=== PATIENT | female | born 1945 | race Caucasian/White ===

== ENCOUNTER 2022-07-01 11:38 | Inpatient (IN) | payer MEDICARE, SELFPAY ==
[2022-06-25 09:55] VITALS: BMI 34.3
[2022-07-01] VITALS (14 sets, daily range): BP systolic 118–193; BP diastolic 55–89; PULSE 26–73; RESP 10–18; TEMP 35.9–36.7; O2SAT 93–98; BMI 34.3
[2022-07-01] MEDS: LACTATED RINGERS 1,000 ML 84 ML IV (12:38)
[2022-07-01 13:10] LABS: COVID19 -Nasal RAPID Negative (Negative)
--- NOTE | 2022-07-01 13:10 | PM.PREOP ---
Pre-operative Note COVID-19 COVID-19 status: Negative Result date/Date tested (Pos, Neg/Pending): 06/30/22 Criteria for continued procedure: Expected advancement of disease process, Possibility delay results in more complex future surgery or treatment, Increased loss of function, Continuing or worsening of significant or severe pain, Deterioration of the patient's condition or overall health and Delay expected to result in less-positive ultimate med/surg outcome Interval Note History & Physical reviewed/Exam performed by Physician: Yes Changes to H&P: No
[2022-07-01] MEDS: CEFAZOLIN 2 GM/100 ML PREMIX 100 ML IV ×2 (14:00→21:42)
--- NOTE | 2022-07-01 14:15 | SUR.OPER ---
Prone on spine table, head in foam head support, padded chest and pelvic supports, gel pad at knees, lower legs supported by pillows; nipples, genitalia and toes free of pressure, arms secured on foam padded arm boards at <90 degrees abduction. Tape over blanket at thigh secured to table.
[2022-07-01] MEDS: BUPIVACAINE LIPOSOME 266 MG/20 ML VIAL INJ (14:46)
[2022-07-01] MEDS: BUPIVACAINE 0.25% (PF) VIAL 30 ML INJ (14:48)
[2022-07-01] MEDS: EPINEPHrine 1 MG/ML IV (14:49)
--- NOTE | 2022-07-01 16:05 | PM.OP.1 ---
Operative Date/Time/Diagnoses Date of procedure: 07/01/22 Time of procedure: 13:00 Pre-op diagnosis: 1. L4-5 spondylolisthesis 2. L4-5 spinal stenosis with neurogenic claudication Post-op diagnosis: same Procedure & Clinicians Procedure: 1. L4-5 Postero-lateral and posterior interbody fusion 2. L4-5 interbody cage placement. 3. L4-5 decompressive laminectomy with bilateral facetecomies 4. L4-5 Posterior non-segmental instrumentation 5. [place] of bone marrow from iliac crest 6. Utilization of microsurgical technique and operating microscope Same procedure as scheduled: Yes Indications: Patient has been having chronic back pain and worsening lumbar radiculopathy. Patient failed multiple conservative management with worsening pain weakness and numbness in her lower extremity. Patient has been having difficulty performing activity of daily living. After discussing risks benefits of treatment options, patient elected proceed with surgery. Surgeon: Dk Monroe Transverse Abdominal Muscle Nurse: Duane Murray Click Yes if Unassisted: No Anesthesia Type: General Operative Notes Closure Type: primary Specimen(s): none sent Prosthetic devices, grafts, tissues, transplants, or devices: Globus revolve screws, Rise cage Estimated Blood Loss (mL): 50 Blood products transfused: none Procedure in detail: Patient was seen in the preoperative area. Risks and benefits of the surgery was discussed with the patient. Informed consent was obtained from the patient and placed in the chart. Surgical site was marked. Patient was taken to the operative room. General anesthesia was administered. Prophylactic antibiotic was given to the patient less than 30 min before the incision was made. Patient was placed into a prone position on the Gerson table. Patient's back was then prepped and draped in the sterile fashion. Time-out was performed at this time. Using AP and lateral C-arm imaging the interval between L4-5 was identified and marked on patient's back. A 2 inch incision 2 in from midline was made on the left side first. The fascia was incised in line with skin incision. Globus MARS retractors was placed inside the incision and docked onto the L4 lamina. Using microsurgical technique and operating microscope, a L4 laminectomy and L4-5 facetectomy was performed using a Kerrison rongeur. The disc space at L4-5 was identified. And a total diskectomy was performed at L4-5 level. The endplates were decorticated using a rasp and shaver. The total diskectomy and decortication was performed at L4-5 level in order to to accomplish a L4-5 fusion. The local bone from the laminectomy and facetectomy was saved for local bone grafting. After the total diskectomy and decortication was completed, Trifecta bone graft material was combined with local bone that was harvested earlier. At this time, a separate skin is incision was made over the iliac crest. A Jamshidi needle was inserted into the iliac crest through a separate skin incision. 5 cc of bone marrow aspiration was obtained through the separate skin incision using a Jamshidi needle from the iliac crest. The bone marrow aspiration was combined with local bone and the Trifecta bone grafting material. The bone grafting material was placed into the L4-5 interbody space along with a expandable cage. The cage was expanded to its maximum height using the torque limiting screwdriver. At this time a mirror image incision was made on the right side. The fascia was incised in line with the skin incision. Globus MARS retractor was inserted and docked onto the L4-5 posterolateral gutter. Using the power drill, posterior-lateral decortication was performed at L4-5 level until bleeding cortical bone was identified. The remaining bone grafting material was placed into the L4-5 posterior lateral gutter he order to accomplish posterolateral fusion at the L4-5 level. Using the double C-arm technique, pedicle screws were placed into the L4-5 pedicles bilaterally. This was done by placing the Jamshidi needle into the pedicles, then placing the guidewires over the Jamshidi needle, and finally placing the cannulated screws over the guidewires bilaterally. After the pedicle screws were placed, 2 titanium rods was locked into the heads of the pedicle screws using locking caps and torque limiting screwdriver. After all the hardware was placed, and confirmed with AP and lateral C-arm imaging, the wound was then irrigated with sterile normal saline and packed with Ray-Stephanie gauze for 3 min to accomplish hemostasis. After the gauze was removed the deep fascia was closed with #1 Vicryl suture. The subcutaneous layer was closed with 2-0 Vicryl. The skin was closed with skin ivy. Patient tolerated the procedure well. There were no complications. Complications: none Post-operative Condition: stable Disposition: PACU Plan for aftercare: Admit to inpatient hospital
--- NOTE | 2022-07-01 16:17 | DI.RAD.S_ITS ---
PROCEDURE: XR LUMBAR SPINE 2-3V INDICATIONS: L4-L5 TLIF TECHNIQUE: 2 views of the lumbar spine were acquired. COMPARISON: None. FINDINGS: Bones: Fluoroscopic guidance utilized for a transverse interbody fusion at L4-5. IMPRESSION: Fluoroscopic guidance utilized for an interbody fusion at L4-5. Dictated by: Dylan Lim M.D. on 07/01/2022 at 16:50 Approved by: Dylan Lim M.D. on 07/01/2022 at 16:51
[2022-07-01] MEDS: fentaNYL 100 MCG/2 ML INJ IV ×2 (16:24→16:42)
[2022-07-01] MEDS: hydrOXYzine 50 MG/ML INJ 25 MG IM (16:24)
[2022-07-01] MEDS: OXYCODONE/ACETAMINOPHEN 5/325 TABLET 1 TAB PO (16:53)
[2022-07-01] MEDS: LACTATED RINGERS 1,000 ML 125 ML IV ×2 (18:26→23:16)
[2022-07-01] MEDS: ACETAMINOPHEN 325 MG TABLET 650 MG PO (19:54)
[2022-07-01] MEDS: DOCUSATE 100 MG CAPSULE PO (20:18)
[2022-07-01] MEDS: SENNOSIDES 8.6 MG TABLET 17.2 MG PO (20:18)
[2022-07-01] MEDS: OXYCODONE IR 10 MG TABLET PO (21:17)
[2022-07-02 01:48] VITALS: BP 168/65; PULSE 61; RESP 17; TEMP 36.4; O2SAT 94
[2022-07-02] MEDS: ACETAMINOPHEN 325 MG TABLET 650 MG PO ×4 (03:04→20:45)
[2022-07-02] MEDS: IBUPROFEN 400 MG TABLET 200 MG PO ×4 (03:04→20:43)
[2022-07-02 04:07] VITALS: BP 163/63; PULSE 63; RESP 17; TEMP 36.2; O2SAT 97
[2022-07-02] MEDS: CEFAZOLIN 2 GM/100 ML PREMIX 100 ML IV (05:19)
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
[2022-07-02 09:03] VITALS: BP 167/62; PULSE 68; RESP 18; O2SAT 100
--- NOTE | 2022-07-02 09:05 | OT.IP.EVAL ---
Current Diagnoses Spondylolisthesis, lumbar region (07/01/22) Spinal stenosis, lumbar region with neurogenic claudication (07/01/22) Surgery Performed Operation Date: 07/01/22 13:45 Actual Procedures p L4-5 TLIF - Dk Monroe MD Past Medical History (Last Reviewed 07/02/22 @ 10:50 by Tena Burris PA-C) Acute reaction to situational stress (04/2022) Benign positional vertigo Headache Hearing impaired History of COVID-19 (07/2021) HTN (hypertension) Irregular heartbeat Numbness Psoriasis Shoulder pain Spinal stenosis Surgical History (Last Reviewed 07/02/22 @ 10:50 by Tena Burris PA-C) History of History of carpal tunnel surgery of left wrist History of carpal tunnel surgery of right wrist Hx of arthroscopy of left knee Hx of bilateral cataract extraction Hx of tonsillectomy Occupational Therapy Inpatient Evaluation/Re-Eval M2 OT-IP Current Condition Start: 07/02/22 12:43 Freq: Status: Active Protocol: Document 07/02/22 09:05 [facility] (Rec: 07/02/22 13:49 [facility] [id number]) Occupational Therapy Current Condition Current Condition Evaluation Date 07/02/22 Treatment Diagnosis S/p L4-5 TLIF Diagnosis Onset Date 07/01/22 Post Operative Precautions Lumbar Precautions Log Roll,No Twisting,Limit Bending,Lifting Restriction of 10 lbs,Gait Belt above Incisional Area M3 OT- IP Subjective and Pain Start: 07/02/22 12:43 Freq: Status: Active Protocol: Document 07/02/22 09:05 [facility] (Rec: 07/02/22 13:49 [facility] [id number]) OT- Subjective Occupational Therapy Visit Type Type Initial Evaluation Visit Start Time 09:05 Visit Stop Time 09:44 Total Visit Minutes 39 Occupational Therapy Visit Comments Patient Comments Pt agreed to work with OT and pt's daughter present at the end of the session. Patient/Caregiver Goals To go home. OT Pain Assessment Pain When Pain Assessed At Rest Pain Present Pain Present Pain Reported Location Left Lower Back Intensity 2 M4 OT- IP ADL's Start: 07/02/22 12:43 Freq: Status: Active Protocol: Document 07/02/22 09:05 [facility] (Rec: 07/02/22 13:49 [facility] [id number]) OT [id number] Comments OT Self-Feeding Comments Not at meal time. OT ADL-Grooming Comments OT Grooming Comments Not performed. OT ADL-Oral Care Comments Oral Care Comments Educated best to spit into a cup or hinge at her hips to best follow her back precautions. OT ADL-Dressing General Eval Lower Body Dressing Ability Maximum Assistance Comments OT Dressing Comments Pt does not wear socks and wears slip on sandals. Able to tighten the strap so [place] able to fit better and encouraged to have shoes instead if able. Pt able to use the construction producer to assist to turner/doff her brief. OT ADL-Toileting Comments OT Toileting Comments Pt states goes 3-4 times to the bathroom at night. Suggested pt get a BSC and continue to wear pull up briefs -as she does at home. Able to show pt toilet paper aid that would be beneficial for her to get or that she will need assist from her daughter for hygiene needs. OT ADL-Bathing Comments OT Bathing Comments Pt has a tub bench at home that she can use. Suggested best to make sure it is set up at the right height for her as her late used it before. M5 OT- IP IADL's Start: 07/02/22 12:43 Freq: Status: Active Protocol: Document 07/02/22 09:05 [facility] (Rec: 07/02/22 13:49 [facility] [id number]) OT-Instrumental Activities of Daily Living Deficits IADL Deficits Identified Deficits Home Safety Awareness Awareness of Need for Assistance at Home Good Awareness Home Safety Comments Pt is [place] and at times has difficulty to understates what is begin said. Pt's daughter to be able to assist with her needs. M6 OT- IP Functional Cognition Start: 07/02/22 12:43 Freq: Status: Active Protocol: Document 07/02/22 09:05 [facility] (Rec: 07/02/22 13:49 [facility] [id number]) Cognitive Factors Limiting Selfcare Function Cognitive Ability Level of Alertness Alert Patient Orientation Name,Place,Situation Attention Span Ability Capable of Focused Attention, Capable of Sustained Attention Ability to Follow Commands Able to Follow One Step Commands Safety Awareness Decreased Ability to Apply Precautions Cognitive Comments Cognitive Assessment Comments Pt needing reminders for her back precautions during log rolling needs and to be sure to keep the FWW in front of her. OT- Vision and Hearing OT- Hearing Assessment OT- Hearing Assessment Use of Hearing Aids M7 OT- IP Mobility and Balance Start: 07/02/22 12:43 Freq: Status: Active Protocol: Document 07/02/22 09:05 [facility] (Rec: 07/02/22 13:49 [facility] [id number]) OT- Bed Mobility Assessment Supine to Sit Supine to Sit Assist Contact Guard Assistance Sit to Supine Sit to Supine Assist Contact Guard Assistance OT-Transfer Assessment Sit to and From Stand Sit to and from Stand Contact Guard Assistance Transfers Transfer Ability Standby Assistance Technique Transfer Destination Bed,Chair Transfer Technique Stand Step Pivot Devices Transfer Assistive Devices Gait Belt,4 Wheeled Walker Comments Mobility Comments Educated pt's daughter to hold the FWW next to the bed to increase ease for bed mobility needs at this time. In addition educated pt to push up from surfaces sitting on when coming to stand. OT- Balance Assessment Sitting Balance and Reactions Static Sitting Balance Ability Good Dynamic Sitting Balance Ability Good Standing Balance and Reactions Static Standing Balance Ability Fair Dynamic Standing Balance Ability Fair M9 OT- IP Assessment and Plan Start: 07/02/22 12:43 Freq: Status: Active Protocol: Document 07/02/22 09:05 [facility] (Rec: 07/02/22 13:49 [facility] [id number]) OT Summary Assessment and Plan Potential Rehabilitation Potential Good Analytic Complexity at Evaluation Low Summary OT Impairments Pain,Balance,Functional Mobility,Dressing,Toileting, Bathing,Toilet Transfers, Shower Transfers Progress Towards Goals Progressing Toward Goals Assessment Summary Pt low complexity and main barriers is pain, pt will need assist for toileting and showering needs and use of LB dressing equipment for dressing needs. Pt's daughter present and educated her on pt 's needs for ADl's and for now to hold the FWW on the side of the bed to help increased ease to get up. Pt to go home with assist when medically stable. Goals Grooming Goal Independent Dressing Goal Independent Toileting Goal Independent,Minimal Assistance ,Toilet Paper Aid Bathing Goal Standby Assistance Toilet Transfer Goal Independent Shower Transfer Goal Standby Assistance Patient/Caregiver Education Goal Demonstrate Post-Op Precautions Days to Meet Goals 7 Frequency of Treatment Frequency Of Treatment Once a Day Treatment Plan OT Treatment Plan ADL Training,Functional Mobility,Patient/Family Education,Discharge Planning Discharge Recommendations OT Discharge Recommendations Home with Assistance Home Equipment Needs BSC, toilet paper aid Transportation Needs at Discharge Private Vehicle
[2022-07-02] MEDS: DOCUSATE 100 MG CAPSULE PO ×2 (09:17→20:45)
[2022-07-02] MEDS: hydroCHLOROthiazide 25 MG TABLET PO (09:17)
[2022-07-02] MEDS: AMLODIPINE 5 MG TABLET 10 MG PO (09:17)
--- NOTE | 2022-07-02 10:20 | PT.IIE ---
Current Diagnoses Spondylolisthesis, lumbar region (07/01/22) Spinal stenosis, lumbar region with neurogenic claudication (07/01/22) Surgery Performed Operation Date: 07/01/22 13:45 Actual Procedures p L4-5 TLIF - Dk Monroe MD Surgical History (Last Reviewed 07/02/22 @ 10:50 by Tena Burris PA-C) History of History of carpal tunnel surgery of left wrist History of carpal tunnel surgery of right wrist Hx of arthroscopy of left knee Hx of bilateral cataract extraction Hx of tonsillectomy Medical History (Last Reviewed 07/02/22 @ 10:50 by Tena Burris PA-C) Acute reaction to situational stress (04/2022) Benign positional vertigo Headache Hearing impaired History of COVID-19 (07/2021) HTN (hypertension) Irregular heartbeat Numbness Psoriasis Shoulder pain Spinal stenosis Physical Therapy Inpatient Evaluation/Re-Eval M1 PT/OT-IP Prior Functional Status Start: 07/02/22 13:35 Freq: NEEDED Status: Active Protocol: Document 07/02/22 10:20 AB (Rec: 07/02/22 13:52 AB [id number]) Medical Review Prior Functional Status Medical History Reviewed Yes Communication able to make needs known Mobility and Gait pt stated that she is independent with all mobilities and ambulation without AD Social History Household Members none Living Arrangements House Number of Floors (Floors) One Floor Number of Stairs To Enter/Railing? 3 steps wide rails to enter 2 steps without rails to go up to laudry room to get to main level of the house Home Environment Standard Height Toilet,Tub/ Shower Home Equipment Front Wheel Walker,Straight Cane,Tub Transfer Bench,Hand Held Shower,Grab Bars In Shower Additional Social History Comment pt's daughter will be staying with her to assist her until and afterwards, her niece will be coming to staying her M2 PT-IP Current Condition Start: 07/02/22 13:35 Freq: NEEDED Status: Active Protocol: Document 07/02/22 10:20 AB (Rec: 07/02/22 13:52 AB [id number]) Physical Therapy Current Condition Current Condition Evaluation Date 07/02/22 Treatment Diagnosis s/p L4-5 fusion; difficulty in walking Onset Date 07/01/22 M3 PT-IP Subjective Start: 07/02/22 13:35 Freq: NEEDED Status: Active Protocol: Document 07/02/22 10:20 AB (Rec: 07/02/22 13:52 AB [id number]) Subjective Physical Therapy Visit Type Type Initial Evaluation Visit Start Time 10:20 Visit Stop Time 11:03 Total Visit Minutes 43 Number of RELIEF CHARGE NURSE Visits 0 Physical Therapy Visit Comments Patient Comments agreeable to do PT Therapy Pain Assessment Pain When Pain Assessed At Rest Pain Present Pain Present Pain Reported Location Left Lower Back Intensity 2 Scale Used Numeric (0 - 10) Pain Management Techniques Apply Cold,Distraction, Modification of Treatment,Re- positioning,Timing of Activity with Medications M4 PT-IP Mobility and Gait Start: 07/02/22 13:35 Freq: NEEDED Status: Active Protocol: Document 07/02/22 10:20 AB (Rec: 07/02/22 13:52 AB [id number]) PT-Bed Mobility Assessment Rolling Type of Rolling Log Rolling Level of Assist Standby Assistance Supine to Sit Supine to Sit Moderate Assistance PT-Transfer Assessment Sit to and From Stand Sit to and from Stand Contact Guard Assistance,1 Person Assistance,Use of Upper Extremities Equipment Transfer Assistive Device Gait Belt,Front Wheeled Walker Orthotic/Prosthetic Devices or Brace: No Transfers Transfer Destination Chair,Toilet Transfer Technique ambulated Transfer Ability Level of Assist Contact Guard Assistance,1 Person Assistance,Use of Upper Extremities Comments Mobility Comments pt supine in bed and daughter present. OT already saw pt prior to PT session and pt was able to recall back precautions. pt completed log roll supine to sit mod A provided by daughter to stabilize FWW used as bed rail to assist pt with bed mobility. Pt stated that OT initiated some caregiver training. pt able to sit on EOB SBA. educated daugther on use of safety belt and how to assist pt. daughter seemed to have difficulty following instructions but pt was able to inform daugther on what to do and how to assist her. daughter was able to put safety belt on pt. assist pt with sit to stand CGA and pt ambulated to the toilet as requested using FWW CGA. pt able to manage brief SBA but required assist with hygiene care. pt ambulated out of the bathroom to the sink using FWW CGA. able to maintain standing SBA while completing handwashing. pt sat on the chair and rested. pt tends to pull on FWW for sit to stand. educated on sit to stand technique and completed SBA from chair x 2 reps. pt agreed to do stairs. daughter assisted pt with ambulation using FWW ~ 150 ft SBA to CGA. pt completed up/down stairs using 1 rail +SPC initially with PT assisting CGA to min A during descent. completed again with daughter assisting and completed safely. pt completed up/down platform step using SPC +edge of rail as support and daughter assisting CGA to min A. pt ambulated back to her room using FWW SBA to CGA. agreed to sit up on the chair. positioned on the chair. call light and table placed within reach. Gait Assessment Gait Gait Assistance Required: Standby Assistance,Contact Guard Assist Distance (Feet) 150 Able to Maintain Weight Bearing Status Yes During Gait Assistive Devices Assistive Device Gait Belt,Front Wheeled Walker Orthotic/Prosthetic Devices or Brace: No Gait Deviations General Gait Pattern Decreased Stride Length, Decreased Feet Clearance Factors Limiting Gait Function Factors Limiting Gait Function Decreased Activity Tolerance, Decreased Strength,Limited Range of Motion,Pain,Poor Balance Stair Climbing Assessment Evaluation Level of Assist On Stairs Contact Guard Assistance, Minimal Assistance,1 Person Assistance Devices Stair Climbing Assistive Devices Straight Cane,Left Railing Technique/Endurance Stair Climbing Direction Ascend and Descend Stair Climbing Technique Step to Step Number of Steps Climbed 3 Query Text: Stair Climbing Set # Repetitions (reps) 2 PT-Balance Assessment Sitting Balance and Reactions Static Sitting Balance Ability Good Dynamic Sitting Balance Ability Good Standing Balance and Reactions Static Standing Balance Ability Fair Dynamic Standing Balance Ability Fair Device Used FWW M5 PT-IP Objective Assessments Start: 07/02/22 13:35 Freq: NEEDED Status: Active Protocol: Document 07/02/22 10:20 AB (Rec: 07/02/22 13:52 AB [id number]) Orientation Orientation/Cognition Level of Alertness Alert Orientation Name,Place,Situation Language Function Ability No Deficits Noted Safety Awareness Understands Safety Issues Memory Description No Deficits Noted Gross Range of Motion Lower Extremity ROM Assessment Within Functional Limits Strength Lower Extremity Strength Assessment Within Functional Limits Coordination Assessment Gross Coordination Gross Coordination WNL Sensation Assessment Sensation Gross Sensation WNL Muscle Tone Muscle Tone WNL Yes M6 PT-IP Treatment Start: 07/02/22 13:35 Freq: NEEDED Status: Active Protocol: Document 07/02/22 10:20 AB (Rec: 07/02/22 13:52 AB [id number]) Physical Therapy Treatment Education Education Provided Precautions,Weight Bearing Status,Safety M7 PT-IP Assessment and Plan Start: 07/02/22 13:35 Freq: NEEDED Status: Active Protocol: Document 07/02/22 10:20 AB (Rec: 07/02/22 13:52 AB [id number]) PT Summary Assessment and Plan Potential Rehabilitation Potential Good Status of Condition at Evaluation Stable Summary Impairments Pain,ROM,Strength,Balance, Coordination,Sensation,Tone, Cognition,Bed Mobility, Transfers,Gait,Activity Tolerance Assessment Summary pt is s/p L4-5 fusion POD 1. pt requiring mod A for supine to sit and SBA to CGA with ambulation using FWW. caregiver training conducted and pt's daughter was able to assist pt safely. pt plans to go home and daughter to assist. pt may go home when medically stable. Goals Bed Mobility Goal Independent Transfer Goal Independent,Front Wheeled Walker Gait Goal Independent,Front Wheel Walker Gait Distance 150 Other Goals up/down 3 steps 1 rail +SPC SBA Days to Meet Goals 3 Frequency of Treatment Frequency Of Treatment Twice a Day Treatment Plan Physical Therapy Treatment Plan Bed Mobility Training,Transfer Training,Gait Training, Therapeutic Exercise,Balance Retraining,Post Op Education, Discharge Planning,Hot or Cold Pack,Neuromuscular Re-ed, Coordination Retraining,Manual Therapy Precautions Lumbar Precautions Log Roll,No Twisting,Limit Bending,Lifting Restriction of 10 lbs,Gait Belt above Incisional Area Recommendations To Nursing Amount of Assist Needed 1 Person Assist Discharge Recommendations PT Discharge Recommendations Home with Assistance Transportation Needs at Discharge Private Vehicle
--- NOTE | 2022-07-02 10:49 | P.PN_ITS ---
Subjective Subjective Date Patient Seen: 07/02/22 Time Patient Seen: 07:15 Interval history: Patient is resting comfortably in bed this morning with daughter at bedside. She states she is doing well and is having minimal pain. Pain is well controlled with medication. Exam Vital Signs (past 8 hours): - 07/02/22 04:07 07/02/22 09:03 Temperature 97.1 F L Pulse Rate 63 68 Respiratory Rate 17 18 Blood Pressure 163/63 H 167/62 H Pulse Oximetry 97 100 Oxygen Flow Rate 0 0 Oxygen Delivery Method Room Air Oxygen Flow Rate 0 Narrative Exam Narrative: 77-year-old female. Awake, alert, and oriented. Lumbar dressing change this morning: Clean, dry, and intact. Strength and sensation intact to bilateral lower extremities. Bilateral calves soft, compressible, nontender with no palpable cords or masses. Objective Labs Labs: Laboratory Results - last 24 hr 07/01/22 12:53 SARS-CoV-2 (PCR) Negative [facility] Medical History Acute reaction to situational stress (04/2022) Benign positional vertigo Headache Hearing impaired History of COVID-19 (07/2021) HTN (hypertension) Irregular heartbeat Numbness Psoriasis Shoulder pain Spinal stenosis Surgical History History of History of carpal tunnel surgery of left wrist History of carpal tunnel surgery of right wrist Hx of arthroscopy of left knee Hx of bilateral cataract extraction Hx of tonsillectomy Social History household members: none Smoking Status: Never smoker alcohol intake: never Assessment & Plan Post-op Postoperative Procedures: Procedures Operation Date: 07/01/22 13:45 Actual Procedure Side Surgeon p L4-5 TLIF Dk Monroe MD Postoperative day: 1 Postoperative status: doing well Postoperative status narrative: Patient is progressing as expected after L4-5 TLIF. Pain is well managed at this point. Postoperative plan: routine post-op care Postoperative plan narrative: If physical therapy goes well today she would like to go home. She has about 5 steps to enter her home 3 of them have a railing. Daughter will be available for assistance. Quality VTE Deep Vein Thrombosis/Pulmonary Embolism Present on Admission: No
[2022-07-02] MEDS: hydrOXYzine pamoate 25 MG CAPSULE PO ×2 (14:59→20:45)
[2022-07-02] MEDS: SENNOSIDES 8.6 MG TABLET 17.2 MG PO (20:45)
[2022-07-02] MEDS: OXYCODONE IR 10 MG TABLET PO (20:45)
[2022-07-02 21:00] VITALS: BP 153/48; PULSE 80; RESP 18; TEMP 36.8; O2SAT 95
[2022-07-03] MEDS: ACETAMINOPHEN 325 MG TABLET 650 MG PO ×2 (03:26→11:27)
[2022-07-03] MEDS: IBUPROFEN 400 MG TABLET 200 MG PO ×2 (03:26→11:27)
[2022-07-03] MEDS: hydrOXYzine pamoate 25 MG CAPSULE PO ×2 (03:28→08:41)
[2022-07-03 07:00] VITALS: BP 138/48; PULSE 56; RESP 18; TEMP 36.6; O2SAT 97
--- NOTE | 2022-07-03 07:28 | P.DS_ITS ---
History of Present Illness History of Present Illness Date Patient Seen: 07/03/22 Time Patient Seen: 07:28 Chief complaint: Back pain Narrative: Patient states her back pain is mild. Denies fever or chills. No nausea or vomiting. Patient has somebody home to assist her. Otherwise without complaints. Discharge Providers Provider Date of admission: 07/01/22 11:38 Discharge Date: 07/03/22 Primary care physician: Michaelle Martínez MD Consults: 07/01/22 17:21 Consult to Occupational Therapy Evaluate & Treat Comment: Physician Instructions: Evaluate and treat Consult to Physical Therapy Evaluate & Treat Comment: Physician Instructions: Evaluate and Treat Discharge provider: Duane Murray PA-C Summary Hospital Course Discharge Diagnosis: 1. L4-5 spondylolisthesis 2. L4-5 spinal stenosis with neurogenic claudication Hospital Course: 1. L4-5 Postero-lateral and posterior interbody fusion 2. L4-5 interbody cage placement. 3. L4-5 decompressive laminectomy with bilateral facetecomies 4. L4-5 Posterior non-segmental instrumentation 5. Rush of bone marrow from iliac crest 6. Utilization of microsurgical technique and operating microscope Same procedure as scheduled: Yes Indications: Patient has been having chronic back pain and worsening lumbar radiculopathy. Patient failed multiple conservative management with worsening pain weakness and numbness in her lower extremity.? Patient has been having difficulty performing activity of daily living.? After discussing risks benefits of treatment options, patient elected proceed with surgery. Surgeon: Dk Monroe Automatic Wheel Line Operator: Duane Murray Click Yes if Unassisted: No Anesthesia Type: General Operative Notes Closure Type: primary Specimen(s): none sent Prosthetic devices, grafts, tissues, transplants, or devices: Globus revolve screws, Rise cage Estimated Blood Loss (mL): 50 Blood products transfused: none Patient admitted to the hospital for the above-mentioned procedure. Patient consented to the same. Patient underwent lumbar fusion July 01, 2022. Patient back in her room recovering well as in stable condition. Patient will work with Physical therapy this morning and be discharged home today if safe for home environment. Exam Vital Signs (past 8 hours): Oxygen Delivery Method Room Air Oxygen Flow Rate 0 Narrative Exam Narrative: Pleasant 77 year old female resting comfortably in bed in no apparent distress. Dressing is Clean, dry, intact.. Motor functions intact bilateral lower extremities. Sensation grossly intact to light touch bilateral lower extremities. Const General: cooperative and comfortable Nutritional Appearance: well nourished Orientation: alert Resp Effort & Inspection: normal respiratory effort and able to speak in complete sentences [facility] Medical History Acute reaction to situational stress (04/2022) Benign positional vertigo Headache Hearing impaired History of COVID-19 (07/2021) HTN (hypertension) Irregular heartbeat Numbness Psoriasis Shoulder pain Spinal stenosis Surgical History History of History of carpal tunnel surgery of left wrist History of carpal tunnel surgery of right wrist Hx of arthroscopy of left knee Hx of bilateral cataract extraction Hx of tonsillectomy Social History household members: none Smoking Status: Never smoker alcohol intake: never Discharge Assessment & Plan Assessment and Plan Assessment: Patient progressing as expected status post L4-L5 fusion Plan of Treatment: Multimodal pain management Limit bending, twisting, lifting Discharge home today after physical therapy if safe for home environment Discharge Plan Discharge Plan Patient Disposition: Home Provider Discharge Comment: Plan for discharge late morning of 07/03. Daughter to arrive around 10 am. Discharge orders & Medications Prescriptions: New hydroxyzine pamoate 25 mg Capsule 25 mg PO Q4HR PRN (Reason: Nausea And Vomiting) Qty: 40 0RF oxycodone 5 mg tablet 5 mg PO Q4-6H PRN (Reason: pain) Qty: 40 0RF Continued amlodipine 10 mg Tablet 10 mg PO DAILY hydrochlorothiazide 25 mg Tablet 25 mg PO DAILY acetaminophen 500 mg Tablet 500 mg PO Q6H PRN (Reason: Pain) trazodone 100 mg Tablet 50 - 100 mg PO BEDTIME PRN (Reason: Sleep) ibuprofen 200 mg Tablet 200 mg PO Q6H PRN (Reason: Pain) Follow up/Referrals: Michaelle Martínez MD [Primary Care Provider] - Dk Monroe MD [Physician] - As previously scheduled (Follow up with Kimberlee Burris PA-C, on 07/16/2022 @ 2:00 pm at [facility] office in [place].) Diet/Activity/Treatments Diet: Diet as Tolerated Activity: Up and walking as tolerated. No deep bending, twisting, no lifting over 10 pounds Cold/Heat Therapy: Ice/heat to back as needed Skin/Wound/Dressing Care Report to your healthcare provider any signs of infection, such as:: chills, fever, night sweats, unusual drainage and unusual redness Dressing: May shower; keep dressing as dry as possible. If dressing becomes wet or dirty, may remove and replace with clean, dry gauze. No bathing or otherwise soaking incisions. Do not apply any creams, lotions, or ointments to incisions. Visit Report/Discharge Packet Instructions: DI for Prescription Opioid Use, DI for Transforaminal Lumbar Interbody Fusion Stand Alone Forms: Patient Portal/API, Stroke Signs & Symptoms, Surgery Discharge Discharge Data Primary Care Provider: Michaelle Martínez VTE Deep Vein Thrombosis/Pulmonary Embolism Present on Admission: No
[2022-07-03] MEDS: AMLODIPINE 5 MG TABLET 10 MG PO (08:41)
[2022-07-03] MEDS: DOCUSATE 100 MG CAPSULE PO (08:41)
[2022-07-03] MEDS: OXYCODONE IR 10 MG TABLET PO (08:41)
[2022-07-03] MEDS: hydroCHLOROthiazide 25 MG TABLET PO (08:41)
--- NOTE | 2022-07-03 10:36 | PT.IPTN ---
Current Diagnoses Spondylolisthesis, lumbar region (07/01/22) Spinal stenosis, lumbar region with neurogenic claudication (07/01/22) Surgery Performed Operation Date: 07/01/22 13:45 Actual Procedures p L4-5 TLIF - Dk Monroe MD Physical Therapy Treatment Note M2 PT-IP Current Condition Start: 07/02/22 13:35 Freq: NEEDED Status: Active Protocol: Document 07/03/22 10:13 SP (Rec: 07/03/22 10:59 SP [id number]) Physical Therapy Current Condition Current Condition Evaluation Date 07/02/22 Treatment Diagnosis s/p L4-5 fusion; difficulty in walking Onset Date 07/01/22 M3 PT-IP Subjective Start: 07/02/22 13:35 Freq: NEEDED Status: Active Protocol: Document 07/03/22 10:13 SP (Rec: 07/03/22 10:59 SP [id number]) Subjective Physical Therapy Visit Type Type Treatment Note Visit Start Time 10:13 Visit Stop Time 10:36 Total Visit Minutes 23 Notes Daughter in room when arrived, provided SBA needed throughout tx. Number of TELEVISION REPORTER Visits 1 Physical Therapy Visit Comments Patient Comments pt willing to work with therapy. Therapy Pain Assessment Pain When Pain Assessed During Mobility Pain Present Pain Present Pain Reported Location Left Lower Back Intensity 4 Scale Used Numeric (0 - 10) Pain Management Techniques Apply Cold,Distraction, Modification of Treatment,Re- positioning,Timing of Activity with Medications M4 PT-IP Mobility and Gait Start: 07/02/22 13:35 Freq: NEEDED Status: Active Protocol: Document 07/03/22 10:13 SP (Rec: 07/03/22 10:59 SP [id number]) PT-Bed Mobility Assessment Rolling Type of Rolling Log Rolling Level of Assist Standby Assistance Supine to Sit Supine to Sit Standby Assistance Sit to Supine Sit to Supine Standby Assistance Scooting Scooting to Edge of Bed Standby Assistance PT-Transfer Assessment Sit to and From Stand Sit to and from Stand Standby Assistance,Use of Upper Extremities Equipment Transfer Assistive Device Gait Belt,Front Wheeled Walker Orthotic/Prosthetic Devices or Brace: No Transfers Transfer Destination Chair,Toilet Transfer Technique ambulated w/ FWW Transfer Ability Level of Assist Standby Assistance,Use of Upper Extremities Comments Mobility Comments Pt up in chair when arrived, daughter in room. STS and gait around room x2 laps 60 ft w/ FWW SBA- Mod I, steady gait and navigation. stand<> sit EOB<> L SL<> supine x3 reps with cues for core facilitation knees with shoulders and abdominal stabilization during LR L to supine with report less back discomfort recruitment, not needing support of rail or stabilized FWW used yesterday for alternative support to come sitting. SBA- Mod I transfers in bathroom>sink> back to chair w/ fWW self no added support with good maintaining precautions throughout mobility. Pt is ok to return home with daughter as SBA support as needed when medically cleared. TELEVISION REPORTER notified nursing update progression this tx. Gait Assessment Gait Gait Assistance Required: Standby Assistance Distance (Feet) 60 Able to Maintain Weight Bearing Status Yes During Gait Assistive Devices Assistive Device Gait Belt,Front Wheeled Walker Orthotic/Prosthetic Devices or Brace: No Factors Limiting Gait Function Factors Limiting Gait Function Decreased Activity Tolerance, Limited Range of Motion,Pain Comments Gait Comments Cue x1 for safety fWW and foot positioning near sheet on floor front chair. PT-Balance Assessment Sitting Balance and Reactions Static Sitting Balance Ability Normal Dynamic Sitting Balance Ability Good Standing Balance and Reactions Static Standing Balance Ability Good Dynamic Standing Balance Ability Good Device Used FWW M5 PT-IP Objective Assessments Start: 07/02/22 13:35 Freq: NEEDED Status: Active Protocol: Document 07/02/22 10:20 AB (Rec: 07/02/22 13:52 AB [id number]) Orientation Orientation/Cognition Level of Alertness Alert Orientation Name,Place,Situation Language Function Ability No Deficits Noted Safety Awareness Understands Safety Issues Memory Description No Deficits Noted Gross Range of Motion Lower Extremity ROM Assessment Within Functional Limits Strength Lower Extremity Strength Assessment Within Functional Limits Coordination Assessment Gross Coordination Gross Coordination WNL Sensation Assessment Sensation Gross Sensation WNL Muscle Tone Muscle Tone WNL Yes M6 PT-IP Treatment Start: 07/02/22 13:35 Freq: NEEDED Status: Active Protocol: Document 07/03/22 10:13 SP (Rec: 07/03/22 10:59 SP [id number]) Physical Therapy Treatment Education Education Provided Precautions,Weight Bearing Status,Safety Other Treatments Other Treatment Performed Good recall precautions and maintained throughout mobility . Ed for abdominal engagement spinal support during bed mobility with good feedback response less LB recruitment. M7 PT-IP Assessment and Plan Start: 07/02/22 13:35 Freq: NEEDED Status: Active Protocol: Document 07/03/22 10:13 SP (Rec: 07/03/22 10:59 SP [id number]) PT Summary Assessment and Plan Potential Rehabilitation Potential Good Status of Condition at Evaluation Stable Summary Impairments Pain,ROM,Strength,Balance, Coordination,Sensation,Tone, Cognition,Bed Mobility, Transfers,Gait,Activity Tolerance Progress Towards Goals Progressing Toward Goals Assessment Summary Pt SBA- Mod I transfers and gait with FWW throughout room. Daughter provided SBA support during bed mobility, good understandign cues to pt post ed from TELEVISION REPORTER abdominal engagement and pt self performance during bed mobility without need of addtional rail or daugther support this tx. Pt feel comfortable and TELEVISION REPORTER answered all questions daughter had. Pt is ok to return home with daughter to assist as needed when medically cleared. Pt understanding any further questions can refer to surgeon . Goals Bed Mobility Goal Independent Transfer Goal Independent,Front Wheeled Walker Gait Goal Independent,Front Wheel Walker Gait Distance 150 Other Goals up/down 3 steps 1 rail +SPC SBA Days to Meet Goals 3 Frequency of Treatment Frequency Of Treatment Twice a Day Treatment Plan Physical Therapy Treatment Plan Bed Mobility Training,Transfer Training,Gait Training, Therapeutic Exercise,Balance Retraining,Post Op Education, Discharge Planning,Hot or Cold Pack,Neuromuscular Re-ed, Coordination Retraining,Manual Therapy Other Recommendations and Next Treatment Gait further distance, Focus progress SPC/ LRAD. Standing balance activities. Precautions Lumbar Precautions Log Roll,No Twisting,Limit Bending,Lifting Restriction of 10 lbs,Gait Belt above Incisional Area Recommendations To Nursing Amount of Assist Needed Standby Assistance Discharge Recommendations PT Discharge Recommendations Home with Assistance Transportation Needs at Discharge Private Vehicle
--- NOTE | 2022-07-03 11:04 | OT.IP.TRT ---
Current Diagnoses Spondylolisthesis, lumbar region (07/01/22) Spinal stenosis, lumbar region with neurogenic claudication (07/01/22) Surgery Performed Operation Date: 07/01/22 13:45 Actual Procedures p L4-5 TLIF - Dk Monroe MD Occupational Therapy Treatment Note M2 OT-IP Current Condition Start: 07/02/22 12:43 Freq: Status: Active Protocol: Document 07/02/22 09:05 [facility] (Rec: 07/02/22 13:49 [facility] [id number]) Occupational Therapy Current Condition Current Condition Evaluation Date 07/02/22 Treatment Diagnosis S/p L4-5 TLIF Diagnosis Onset Date 07/01/22 Post Operative Precautions Lumbar Precautions Log Roll,No Twisting,Limit Bending,Lifting Restriction of 10 lbs,Gait Belt above Incisional Area M3 OT- IP Subjective and Pain Start: 07/02/22 12:43 Freq: Status: Active Protocol: Document 07/03/22 10:55 [facility] (Rec: 07/03/22 11:18 [facility] [id number]) OT- Subjective Occupational Therapy Visit Type Type Treatment Note Visit Start Time 10:55 Visit Stop Time 11:04 Total Visit Minutes 9 Occupational Therapy Visit Comments Patient Comments Pt asking questions for OT needs and her daughter in the room. Patient/Caregiver Goals TO go home. OT Pain Assessment Pain When Pain Assessed At Rest Pain Present Pain Present Denied Pain M4 OT- IP ADL's Start: 07/02/22 12:43 Freq: Status: Active Protocol: Document 07/03/22 10:55 [facility] (Rec: 07/03/22 11:18 [facility] [id number]) OT ADL-Toileting Comments OT Toileting Comments Continue to suggest that pt get a BSC for home use as pt gets up a lot at night. Pt wanting to get a monitor for night, but suggested can also use her phone or whistle to call her her daughter to assist at night. In addition to keep the bedroom doors open at night. OT ADL-Bathing Comments OT Bathing Comments Pt already showered yesterday. M9 OT- IP Assessment and Plan Start: 07/02/22 12:43 Freq: Status: Active Protocol: Document 07/03/22 10:55 [facility] (Rec: 07/03/22 11:18 [facility] [id number]) OT Summary Assessment and Plan Potential Rehabilitation Potential Good Analytic Complexity at Evaluation Low Summary OT Impairments Pain,Balance,Functional Mobility,Dressing,Toileting, Bathing,Toilet Transfers, Shower Transfers Progress Towards Goals Progressing Toward Goals Assessment Summary Pt going home with her daughter and then her niece to stay with her. Goals Grooming Goal Independent Dressing Goal Independent Toileting Goal Independent,Minimal Assistance ,Toilet Paper Aid Bathing Goal Standby Assistance Toilet Transfer Goal Independent Shower Transfer Goal Standby Assistance Patient/Caregiver Education Goal Demonstrate Post-Op Precautions Days to Meet Goals 6 Frequency of Treatment Frequency Of Treatment Once a Day Treatment Plan OT Treatment Plan ADL Training,Functional Mobility,Patient/Family Education,Discharge Planning Discharge Recommendations OT Discharge Recommendations Home with Assistance Home Equipment Needs BSC, toilet paper aid Transportation Needs at Discharge Private Vehicle
--- NOTE | 2022-07-03 15:15 | CM.DPNOTE ---
DC Note Discharge home w/family as patient had planned, cleared by therapies for this plan No needs from this CM team JW
== END 2022-07-03 11:30 | disposition home or self-care (01) | DRG 455 ==
PROVIDERS: Admitting Provider Orthopaedic Surgery Orthopaedic Surgery of the Spine; PCP Family Medicine; Referring Provider Orthopaedic Surgery Orthopaedic Surgery of the Spine; Visit Provider Orthopaedic Surgery Orthopaedic Surgery of the Spine
PROC: 0SG00AJ Fusion of Lumbar Vertebral Joint with Interbody Fusion Device, Posterior Approach, Anterior Column, Open Approach (ICD-10-PCS; principal; 2022-07-01 13:45)
DX: M43.16 Spondylolisthesis, lumbar region (principal); M48.062 Spinal stenosis, lumbar region with neurogenic claudication; I10 Essential (primary) hypertension; Z20.822 Contact with and (suspected) exposure to COVID-19
CPT/HCPCS: 72100; 76000; 87635; 93005; 97116; 97161; 97165; 97530; 97535; C9803; C1713; C9290; J0171; J0330; J0690; J1100; J2250; J2405; J2704; J3010; J3410